=== PATIENT | female | born 1995 | race African-American/Black ===

== ENCOUNTER 2017-08-02 10:17 | Inpatient (IN) | payer SELFPAY ==
[~2017-08-02] VITALS: Ht 162.6 cm; Wt 61.2 kg
[2017-08-02] MEDS ORDERED: LORAZEPAM 0.5MG TABLET PO ONE (14:15)
[2017-08-02 14:53] LABS: CLARITY URINE CLEAR (CLEAR); COLOR URINE YELLOW (YELLOW); KETONES URINE 1+ (NEGATIVE); LEUKOCYTE ESTERASE URINE TRACE (NEGATIVE); NITRITE URINE NEGATIVE (NEGATIVE); OCCULT BLOOD URINE NEGATIVE (NEGATIVE); PROTEIN URINE NEGATIVE (NEGATIVE); SPECIFIC GRAVITY URINE 1.019 (1.005-1.030); UROBILINOGEN URINE 0.2 E.U./dL (0.2-1.0)
[2017-08-02 15:06] LABS: CHLORIDE 106 mEq/L (98-107)
[2017-08-02 15:09] LABS: *AMPHETAMINES SCREEN URINE NEGATIVE (NEGATIVE); *BARBITURATES SCREEN URINE NEGATIVE (NEGATIVE); *BENZODIAZEPINES SCREEN URINE NEGATIVE (NEGATIVE); *COCAINE SCREEN URINE NEGATIVE (NEGATIVE); CANNABINOID URINE SCREEN NEGATIVE (NEGATIVE); METHADONE URINE SCREEN NEGATIVE (NEGATIVE); OPIATES URINE SCREEN NEGATIVE (NEGATIVE); PHENCYCLIDINE URINE SCREEN NEGATIVE (NEGATIVE)
[2017-08-02 15:16] LABS: BASOPHILS % 0.6 % (0.0-2.0); EOSINOPHILS % 0.1 % (0.0-5.0); HEMATOCRIT. 43.2 % (36.0-48.0); HEMOGLOBIN. 13.8 g/dL (12.0-16.0); LYMPHOCYTES % 9.3 % (20.0-50.0); MEAN CORPUSCULAR HEMOGLOBIN 21.9 pg (28.0-32.0); MEAN CORPUSCULAR VOLUME 68.4 fL (81.0-99.0); MEAN PLATELET VOLUME 9.3 fl (7.4-10.4); PLATELET 252 x1000/uL (130-400); RED BLOOD CELL COUNT 6.31 mill/uL (4.2-5.4); RED CELL DISTRIBUTION WIDTH 14.2 % (11.6-14.6)
[2017-08-02 16:00] LABS: PLATELET ESTIMATE NORMAL
[2017-08-02] MEDS ORDERED: SODIUM CHLORIDE 0.9% 1,000 ML IV ONE (16:45)
[2017-08-02 22:55] VITALS: BP 138/82
[2017-08-02] MEDS ORDERED: METR500T4 PO (23:14)
[2017-08-03 04:00] VITALS: BP 123/88
[2017-08-03 07:06] LABS: EOSINOPHILS % 0.7 % (0.0-5.0); HEMATOCRIT. 40.6 % (36.0-48.0); HEMOGLOBIN. 13.2 g/dL (12.0-16.0); LYMPHOCYTES % 19.4 % (20.0-50.0); MEAN CORPUSCULAR HEMOGLOBIN 22.2 pg (28.0-32.0); MEAN CORPUSCULAR VOLUME 68.1 fL (81.0-99.0); MEAN PLATELET VOLUME 9.3 fl (7.4-10.4); NEUTROPHILS % 70.9 % (40.0-76.0); PLATELET 238 x1000/uL (130-400); RED BLOOD CELL COUNT 5.96 mill/uL (4.2-5.4); RED CELL DISTRIBUTION WIDTH 14.3 % (11.6-14.6)
[2017-08-03 07:23] LABS: CHLORIDE 106 mEq/L (98-107)
[2017-08-03 08:00] VITALS: BP 134/86
[2017-08-03 12:00] VITALS: BP 135/88
[2017-08-03 16:00] VITALS: BP 127/87
[2017-08-03 19:37] VITALS: BP 129/81
== END 2017-08-03 19:58 | disposition home or self-care (01) | DRG 756 ==
LOC: ER 10:17 → 7WST 19:34 → ENRESERV 21:30
PROVIDERS: ADMIT Internal Medicine; ATTEND Family Medicine
DX: F41.0 Panic disorder [episodic paroxysmal anxiety] (principal); I25.2 Old myocardial infarction; N89.8 Other specified noninflammatory disorders of vagina; R00.0 Tachycardia, unspecified; R61 Generalized hyperhidrosis
CPT/HCPCS: 36415; 80048; 80053; 80305; 81003; 84443; 85025; 85379; 93005; 96360; 99285; J7030